=== PATIENT | female | born 1960 | race Caucasian/White ===

== ENCOUNTER 2016-09-22 12:32 | Day surgery (SDC) | payer MEDICAID ==
[~2016-09-22 12:32] MED LIST: NAPR500T PO; PRED1SUS6 EACH EYE; [UNRECOGNIZED DRUG - CODE] EACH EYE
[2016-09-22 14:14] VITALS: BP 138/76; PULSE 73; RESP 16; TEMP 98.1; O2SAT 97
[2016-09-22 15:15] VITALS: BP 142/73; PULSE 67; RESP 20; TEMP 98.2; O2SAT 99
[2016-09-22] MEDS ORDERED: SODIUM BICARBONATE 8.4% INJ 50 ML ONE (16:05)
[2016-09-22] MEDS ORDERED: LIDOCAINE HCL 1% PF 30 ML VIAL ONE (16:05)
--- NOTE | 2016-09-22 16:18 | RADRPT ---
EXAM DATE/TIME: 09/22/2016 14:16 [facility] COMPARISON: No previous studies available for comparison. However, the patient's thyroid ultrasound performed at [facility] was reviewed and is dated 05/25/2016. INDICATIONS : Right thyroid, isthmus nodule. MEDICAL HISTORY : Fibromyalgia. Rosacea. SURGICAL HISTORY : Tonsillectomy. Back surgery. ENCOUNTER: Initial ACUITY: > 1 yr PAIN SCORE: 3/10 LOCATION: Right thyroid. ORGAN: Right thyroid lobe , isthmus. SPECIMENS: Five fine needle aspirate(s) submitted for pathologic evaluation. DEVICE: 22 gauge needle Post procedure scanning reveals no hematoma or other complication. The possibility does exist that the tissue obtained will be non-diagnostic. If the sample is non-eddy gnostic a repeat biopsy or surgical biopsy may need to be performed. TECHNIQUE: 1. Ultrasound guidance for needle biopsy. 2. Needle biopsy. The risks, benefits, and alternatives to ultrasound guided needle biopsy were explained to the patien t in detail including the risk of bleeding and infection. Written and verbal informed consent was ob tained. With the patient on the ultrasound table, images were obtained. The right lobe demonstrates diffuse heterogeneous echotexture and the potential isoechoic nodules documented on prior study are appreciat ed but do not discretely demonstrate definite nodules. In the left lobe there is a 7 mm hypoechoic so lid nodule that contains no calcification. The previous a reported nodule at the lower pole on the le ft is questionably visualized. There is a dominant isthmus nodule that is solid measuring 2.3 x 3.2 x 1.8 cm. This nodule was targeted for biopsy. No definite suspicious nodule is appreciated in the rig ht or left lobes as described. Overlying skin was prepped and draped in the usual sterile fashion and Lidocaine was utilized as a local anesthetic. A needle was advanced into the identified target and the number of specimens as above obtained and alvarez bmitted for pathologic evaluation. The patient tolerated the procedure well and left the ultrasound suite in stable condition. CONCLUSION: Uncomplicated ultrasound guided needle biopsy of the dominant nodule in the isthmus measuring 3.2 cm. Based on the appearance of the very small nodule in the left lobe and the questionable isoechoic nod ules in the right lobe I did not perform a biopsy of these other areas. It would be reasonable to per form followup ultrasound to confirm stability. Sterling Klein MD on September 22, 2016 at 16:11 Board Certified Radiologist. This report was verified electronically.
[2016-10-02] MEDS ORDERED: EQUALIQ7 EACH EYE (15:25)
[2017-01-09] MEDS ORDERED: TOPI1TAB97 PO (13:46)
[2017-01-09] MEDS ORDERED: ACYC-101 PO (13:58)
== END 2016-09-22 15:50 | disposition home or self-care (01) ==
LOC: HRAD 12:32 → HRIP 12:35 → HRAD 15:50
DX: E04.9 Nontoxic goiter, unspecified (principal); R73.9 Hyperglycemia, unspecified; E55.9 Vitamin D deficiency, unspecified; M79.7 Fibromyalgia
CPT/HCPCS: 10022; 76942; 88172; 88173

== ENCOUNTER 2017-04-03 12:42 | Day surgery (SDC) | payer MEDICAID ==
[~2017-04-03 12:42] MED LIST changes: +ACYC-101 PO; +CHOL5000 PO; +MENA1TAB PO; +METF500T PO; +MULT1TAB93 PO; -NAPR500T PO; +NEOM0.1S4 EACH EYE; -PRED1SUS6 EACH EYE; +REST0.05 EACH EYE; +SERT-132 PO; +TOPI1TAB97 PO; -[UNRECOGNIZED DRUG - CODE] EACH EYE
[2017-04-03 14:05] VITALS: BP 125/65; PULSE 56; RESP 18; TEMP 98.6; O2SAT 100
[2017-04-03 14:22] VITALS: BP 132/62; PULSE 65; RESP 18; O2SAT 98
[2017-04-03] MEDS ORDERED: LIDOCAINE HCL 1% 20 ML VIAL ONE (14:24)
--- NOTE | 2017-04-03 15:11 | RADRPT ---
EXAM DATE/TIME: 04/03/2017 13:18 [facility] COMPARISON: No previous studies available for comparison. EXTERNAL COMPARISON: [facility], US THYROID, Nov 24 2016. INDICATIONS : Right thyroid nodule. MEDICAL HISTORY : Hyperthyroidism. Fibromyalgia. Rosacea. SURGICAL HISTORY : Tonsillectomy. Spinal disc removal and fusion. ENCOUNTER: Subsequent ACUITY: 4 - 6 months PAIN SCORE: 2/10 LOCATION: Right neck ORGAN: Right thyroid lobe SPECIMENS: Three fine needle aspirate(s) submitted for pathologic evaluation. DEVICE: 22 gauge needle Post procedure scanning reveals no hematoma or other complication. The possibility does exist that the tissue obtained will be non-diagnostic. If the sample is non-eddy gnostic a repeat biopsy or surgical biopsy may need to be performed. TECHNIQUE: 1. Ultrasound guidance for needle biopsy. 2. Needle biopsy. The risks, benefits and alternatives to the procedure were explained and verbal and written consent w as obtained. The site was prepped in sterile fashion. Full sterile technique was used, including ca p, mask, sterile gloves and gown and a large sterile sheet. Hand hygiene and 2% chlorhexidine and/or betadine/alcohol prep was utilized per protocol for cutaneous antisepsis. The skin and subcutaneous tissues were infiltrated with local anesthetic solution. Sterile gel and sterile probe cover were u tilized for ultrasound guidance. With the patient on the ultrasound table, images were obtained. A needle was advanced into the identified target and the number of specimens as above obtained and alvarez bmitted for pathologic evaluation. The patient tolerated the procedure well and left the ultrasound suite in stable condition. CONCLUSION: Uncomplicated ultrasound guided needle biopsy. Ed Seo MD on April 03, 2017 at 15:09 Board Certified Radiologist. This report was verified electronically.
[2017-04-24] MEDS ORDERED: SERT-132 PO (10:04)
== END 2017-04-03 14:25 | disposition home or self-care (01) ==
LOC: HRAD 12:42 → HRIP 12:43 → HRAD 14:25
DX: E04.1 Nontoxic single thyroid nodule (principal); E05.90 Thyrotoxicosis, unspecified without thyrotoxic crisis or storm; M79.7 Fibromyalgia; L71.9 Rosacea, unspecified
CPT/HCPCS: 10022; 76942; 88172; 88173